=== PATIENT | female | born 1980 | race Asian ===

== ENCOUNTER → 2017-05-13 | Outpatient (CLI) | payer BC | LOC: COL.RAD 08:00 | DX: Z98.890 Other specified postprocedural states (principal); Z87.42 Personal history of other diseases of the female genital tract | CPT/HCPCS: Q9967 ==

== ENCOUNTER → 2017-07-15 | Outpatient (CLI) | payer BC | LOC: MC.RAD 14:37 | DX: N63.10 Unspecified lump in the right breast, unspecified quadrant (principal) ==